=== PATIENT | female | born 1985 | race Hispanic/Latino ===

== ENCOUNTER 2025-04-13 12:02 | Inpatient (IN) | payer OTHER ==
[2025-04-13 13:37] VITALS: BMI 42.5
[2025-04-13] MEDS ORDERED: Acetaminophen 325 MG TAB PO PRN (15:27)
[2025-04-13] MEDS ORDERED: Acetaminophen/Codeine 30-300mg Tablet PO PRN ×2 (16:02)
[2025-04-13] MEDS: levETIRAcetam 500 MG (5 mL) VIAL SLOW IVP SCH ×2 (16:08→20:55)
[2025-04-14 03:57] LABS: #Basophils 0.03 10x3/uL (0.0-0.2); #Eosinophils 0.06 10x3/uL (0.0-0.7); #Monocytes 0.75 10x3/uL (0.11-0.59); #Neutrophils 8.62 10x3/uL (1.40-6.50); %Basophils 0.3 % (0.0-1.0); %Eosinophils 0.5 % (0.0-10.0); %Lymphocytes 18.2 % (21.0-51.0); %Monocytes 6.5 % (0.0-10.0); %Neutrophils 74.2 % (42.0-75.0); Hematocrit 38.5 % (36.0-47.0); Hemoglobin 12.8 g/dL (12.0-16.0); Mean Corpuscular Hemoglobin 27.5 pg (27.0-31.0); Mean Corpuscular Volume 82.6 fL (78.0-98.0); Platelet Count 307 10x3/uL (130-400); Red Blood Cell (RBC) Count 4.66 mill/uL (4.20-5.40); White Blood Cell (WBC) Count 11.62 10x3/uL (4.8-10.8)
[2025-04-14 04:02] LABS: Anion Gap 10 mmol/L (10-20); BUN (Urea Nitrogen) 7 mg/dL (7.0-18.7); Calc. Creatinine Clearance 233 mL/min (70-130); Calcium 8.6 mg/dL (7.8-10.44); Carbon Dioxide 25 mmol/L (22-29); Chloride 106 mmol/L (98-107); Glucose 87 mg/dL (70-105); Potassium 3.5 mmol/L (3.5-5.1); Sodium 137 mmol/L (136-145)
[2025-04-14] MEDS: levETIRAcetam 500 MG TAB PO SCH (20:20)
[2025-04-15 05:25] LABS: Cardiac Risk 3.3 (Less than 4.5); Cholesterol 107.0 mg/dl (< 200 Desired); HDL Cholesterol 32.0 mg/dL (>60 Neg Risk); LDL Cholesterol, Calculated 56.0 mg/dL; Triglycerides 95.0 mg/dL (Less than 150)
[2025-04-15] MEDS: Aspirin 81 mg Enteric Coated Tablet PO SCH (08:53)
[2025-04-15 12:09] VITALS: BP 111/73; TEMP 97.8
== END 2025-04-15 15:10 | disposition home or self-care (01) | DRG 100 ==
LOC: PCU 13:06 → CCU 14:57 → OBSVTOIN 15:27 → IMCU/EMU 04-14 01:28 → OBS 04-14 21:32
PROVIDERS: ADMIT Internal Medicine; ATTEND Internal Medicine
DX: R56.9 Unspecified convulsions (principal); G93.41 Metabolic encephalopathy; Z91.040 Latex allergy status; Z88.8 Allergy status to other drugs, medicaments and biological substances; Z91.018 Allergy to other foods; W19.XXXA Unspecified fall, initial encounter; D72.829 Elevated white blood cell count, unspecified; F15.90 Other stimulant use, unspecified, uncomplicated
CPT/HCPCS: 36415; 36416; 70450; 70553; 72125; 76376; 80048; 80061; 83605; 84146; 85025; 95700; 95711; 95957; J1953; J7120